=== PATIENT | male | born 1950 | race Two or more races ===

== ENCOUNTER 2017-04-03 19:12 | Emergency (ER) | payer MEDICARE ==
[~2017-04-03] VITALS: Ht 167.6 cm; Wt 79.4 kg
[~2017-04-03 19:12] MED LIST: DEXL60CA3; TAMS0.4C34
[2017-04-03 19:23] VITALS: BP 113/74
--- NOTE | 2017-04-03 21:47 | NUR ---
CALLED FOR ROOM ASSIGNMENT; NOT IN LOBBY. INFORMED BY SECURITY
== END 2017-04-03 21:48 | disposition left against medical advice (07) ==
LOC: ER 19:13
DX: Z53.21 Procedure and treatment not carried out due to patient leaving prior to being seen by health care provider (principal)
CPT/HCPCS: A4606; Z7610

== ENCOUNTER 2020-11-10 18:17 | Emergency (ER) | payer MEDICARE ==
[~2020-11-10] VITALS: Ht 167.6 cm; Wt 81.6 kg
[2020-11-10 18:37] VITALS: BP 152/94
[2020-11-10] MEDS ORDERED: AMOX500C2 PO (18:53)
[2020-11-10] MEDS ORDERED: OFLO5DRO5 RIGHT EAR (18:54)
[2020-11-10] MEDS ORDERED: IBUP-1955 PO (18:55)
--- NOTE | 2020-11-10 19:06 | NUR ---
Patient discharged to home in stable condition. Written and verbal after care instructions given. Patient verbalizes understanding of instruction.
== END 2020-11-10 19:05 | disposition home or self-care (01) ==
LOC: ER 18:23
DX: H66.91 Otitis media, unspecified, right ear (principal); H60.91 Unspecified otitis externa, right ear; F17.200 Nicotine dependence, unspecified, uncomplicated; Z79.899 Other long term (current) drug therapy